=== PATIENT | female | born 1975 | race Caucasian/White ===

== ENCOUNTER 2016-11-24 11:15 | Emergency (ER) | payer OTHER ==
[~2016-11-24] VITALS: Ht 162.6 cm; Wt 63.5 kg
[~2016-11-24 11:15] MED LIST: CIPRO500 MG PO; FLAGYL500 MG PO; HYDROCODONE-AP1 EAC6 PO; PHENERGAN 25 MG25 M1 PO; TYLENOL325 MG PO; UNICOMPLEX M TA1 TA1 PO
[2016-11-24] MEDS ORDERED: DELTASONE20 MG PO (11:51)
[2016-11-24] MEDS ORDERED: MUPIROCIN1 GM TP (11:51)
[2016-11-24] MEDS ORDERED: PEPCID20 MG PO (12:00)
== END 2016-11-24 12:20 | disposition home or self-care (01) ==
LOC: ER 11:15
DX: L23.9 Allergic contact dermatitis, unspecified cause (principal); Z90.710 Acquired absence of both cervix and uterus

== ENCOUNTER 2017-05-31 08:19 | Emergency (ER) | payer OTHER ==
[~2017-05-31] VITALS: Ht 162.6 cm; Wt 72.6 kg
[~2017-05-31 08:19] MED LIST changes: +DELTASONE20 MG PO; +IBUPROFEN 600600 M1 PO; +MUPIROCIN1 GM TP; +PEPCID20 MG PO
[2017-05-31 09:03] LABS: ABSOLUTE NEUTROPHILS 4.7 thou/uL (1.4-8.2); BASOPHILS 0.7 % (0.0-2.0); EOSINOPHILS 4.7 % (0.0-3.0); HEMATOCRIT 46.6 % (37.0-47.0); HEMOGLOBIN 15.3 gm/dL (12.0-15.0); LYMPHOCYTES 33.2 % (24.0-44.0); MCH 32.4 pg (26.0-34.0); MCHC 32.9 g/dL (28.0-37.0); MCV 98.6 fL (80.0-100.0); MONOCYTES 6.9 % (1.0-8.0); PLATELET COUNT 214 thou/uL (150-400); POLYS 54.5 % (36.0-66.0); RBC 4.72 mil/uL (4.20-5.00); RDW 14.5 % (10.5-14.5); WBC 8.7 thou/uL (4.0-11.0)
[2017-05-31 09:04] LABS: MANUAL DIFF NO
[2017-05-31 09:10] LABS: CALCIUM 9.8 mg/dL (8.5-10.1); CREATININE 0.9 mg/dL (0.6-1.0); POTASSIUM 4.1 mmol/L (3.5-5.1)
[2017-05-31 09:15] LABS: APTT 24.7 Seconds (24.5-32.8)
[2017-05-31] MEDS ORDERED: NORCO 5-325 TA1 EACH PO (10:13)
== END 2017-05-31 11:01 | disposition home or self-care (01) ==
LOC: ER 08:19
PROVIDERS: Emergency Medicine
DX: M25.572 Pain in left ankle and joints of left foot (principal); F10.99 Alcohol use, unspecified with unspecified alcohol-induced disorder; F17.210 Nicotine dependence, cigarettes, uncomplicated; Z88.1 Allergy status to other antibiotic agents

== ENCOUNTER 2017-11-13 07:09 | Emergency (ER) | payer OTHER ==
[~2017-11-13] VITALS: Ht 162.6 cm; Wt 68.0 kg
[~2017-11-13 07:09] MED LIST changes: +NORCO 5-325 TA1 EACH PO
[2017-11-13] MEDS ORDERED: PROMETHAZINE/C118 ML PO (08:07)
[2017-11-13] MEDS ORDERED: MUCINEX DM ER1 EACH PO (08:07)
[2017-11-13] MEDS ORDERED: IBUPROFEN 600600 M1 PO (08:07)
== END 2017-11-13 08:40 | disposition home or self-care (01) ==
LOC: ER 07:09
DX: J06.9 Acute upper respiratory infection, unspecified (principal); F17.210 Nicotine dependence, cigarettes, uncomplicated; Z87.09 Personal history of other diseases of the respiratory system; Z90.89 Acquired absence of other organs; Z88.1 Allergy status to other antibiotic agents

== ENCOUNTER 2017-11-22 11:01 | Inpatient (IN) | payer OTHER ==
[~2017-11-22] VITALS: Ht 162.6 cm; Wt 65.8 kg
[~2017-11-22 11:01] MED LIST changes: +MUCINEX DM ER1 EACH PO; +PROMETHAZINE/C118 ML PO
[2017-11-22 11:15] VITALS: BP 145/100
[2017-11-22 11:46] LABS: ABSOLUTE NEUTROPHILS 16.4 thou/uL (1.4-8.2); BASOPHILS 0.8 % (0.0-2.0); EOSINOPHILS 2.7 % (0.0-3.0); LYMPHOCYTES 7.1 % (24.0-44.0); MCH 33.9 pg (26.0-34.0); MCHC 34.2 g/dL (28.0-37.0); MCV 99.2 fL (80.0-100.0); MONOCYTES 5.5 % (1.0-8.0); PLATELET COUNT 241 thou/uL (150-400); POLYS 83.9 % (36.0-66.0); RBC 3.83 mil/uL (4.20-5.00); RDW 13.6 % (10.5-14.5); WBC 19.5 thou/uL (4.0-11.0)
[2017-11-22 11:54] LABS: CALCIUM 9.6 mg/dL (8.5-10.1); CREATININE 0.8 mg/dL (0.6-1.0); POTASSIUM 3.3 mmol/L (3.5-5.1)
[2017-11-22 12:00] LABS: ALBUMIN 3.4 g/dL (3.4-5.0); DIRECT BILIRUBIN 0.1 mg/dL (<0.1-0.3); TOTAL BILIRUBIN 0.3 mg/dL (<0.1-1.0); TOTAL PROTEIN 7.8 g/dL (6.4-8.2)
[2017-11-22 14:17] VITALS: BP 128/59
[2017-11-22 15:20] VITALS: BP 134/89
[2017-11-23 04:30] VITALS: BP 117/58; BP 118/54
[2017-11-23 06:05] LABS: HEMATOCRIT 31.6 % (37.0-47.0); MCH 33.9 pg (26.0-34.0); MCV 99.6 fL (80.0-100.0); RBC 3.17 mil/uL (4.20-5.00); RDW 13.6 % (10.5-14.5); WBC 14.2 thou/uL (4.0-11.0)
[2017-11-23 06:26] LABS: HEMOGLOBIN 10.8 gm/dL (12.0-15.0)
[2017-11-23 15:37] VITALS: BP 127/67
[2017-11-23 19:40] VITALS: BP 114/58
[2017-11-24 04:13] VITALS: BP 111/65
[2017-11-24 05:42] LABS: HEMATOCRIT 29.9 % (37.0-47.0); HEMOGLOBIN 10.2 gm/dL (12.0-15.0); MCV 100.1 fL (80.0-100.0); RBC 2.99 mil/uL (4.20-5.00); WBC 9.7 thou/uL (4.0-11.0)
[2017-11-24 08:18] VITALS: BP 105/70
[2017-11-24 09:34] VITALS: BP 105/70
[2017-11-24] MEDS ORDERED: LEVAQUIN 500 M500 M2 PO (09:43)
[2017-11-24] MEDS ORDERED: PROMETHAZINE/C118 ML PO (09:44)
[2017-11-24 14:44] VITALS: BP 105/70
== END 2017-11-24 15:39 | disposition home or self-care (01) | DRG 871 ==
LOC: ER 11:01 → 4E 13:41 → EROBS 13:41 → 4E 15:21 → ENTRNSPT 11-24 15:08 → EDTRNSPTSTS 11-24 15:22 → 4E 11-24 15:39
PROVIDERS: Emergency Medicine; Hospitalist
DX: A41.9 Sepsis, unspecified organism (principal); J18.9 Pneumonia, unspecified organism; F17.210 Nicotine dependence, cigarettes, uncomplicated; Z90.710 Acquired absence of both cervix and uterus; Z88.8 Allergy status to other drugs, medicaments and biological substances
CPT/HCPCS: 10084

== ENCOUNTER 2018-02-13 11:39 | Emergency (ER) | payer OTHER ==
[~2018-02-13] VITALS: Ht 162.6 cm; Wt 72.6 kg
--- NOTE | ~2018-02-13 | EKG ---
[address] [address] [place] [address] ELECTROCARDIOGRAM REPORT Name: VAUGHN COOK Room #: DEP Itzel#: [id number] Admission: 02/13/18 Attend Phys: Discharge: 02/13/18 Date of : 73 Report #: [id number] THIS REPORT FOR: //name// [facility] ED Test Date: 2018-02-13 Test Time: 11:44:56 Pat Name: VAUGHN COOK Department: Room: Gender: F Electrical Systems Designer: Kasie HUNT : 1975 Requested By: Rosemary Almazan Order Number: [id number] MD: Kennedy Cazares Measurements Intervals Converse Rate: 93 P: 68 CT: 121 QRS: 67 QRSD: 89 T: 16 QT: 353 QTc: 440 Interpretive Statements Sinus rhythm RSR' in V1 or V2, right VCD No previous ECG available for comparison Electronically Signed On 02-15-2018 8:26:16 CDT by Kennedy Cazares [email or web address] <ELECTRONICALLY SIGNED> By: Kennedy Cazares MD, [facility] 02/15/18 0826 [id number] [id number] Kennedy Cazares MD, [facility] /EPI
--- NOTE | ~2018-02-13 | EKG ---
[address] [address] [facility] [place] [address] ELECTROCARDIOGRAM REPORT Name: VAGUHN COOK Room #: DEP Itzel#: [id number] Admission: 02/13/18 Attend Phys: Discharge: 02/13/18 Date of : 73 Report #: [id number] THIS REPORT FOR: //name// [facility] ED Test Date: 2018-02-13 Test Time: 14:56:32 Pat Name: VAUGHN COOK Department: Room: Gender: F Payroll Processor: Kasie HUNT : 1975 Requested By: Rosemary Almazan Order Number: [id number] MD: Kennedy Cazares Measurements Intervals [place] Rate: 62 P: -42 SD: 118 QRS: 66 QRSD: 106 T: 31 QT: 443 QTc: 450 Interpretive Statements Sinus rhythm Borderline short SD interval RSR' in V1 or V2, right VCD No previous ECG available for comparison Electronically Signed On 02-15-2018 8:28:08 CDT by Kennedy Cazares [email or web address] <ELECTRONICALLY SIGNED> By: Kennedy Cazares MD, [facility] 02/15/18 0828 1456 1456 Kennedy Cazares MD, [facility] /EPI
[~2018-02-13 11:39] MED LIST changes: +LEVAQUIN 500 M500 M2 PO
[2018-02-13 12:20] LABS: HEMATOCRIT 40.7 % (37.0-47.0); HEMOGLOBIN 14.1 gm/dL (12.0-15.0); MCH 34.3 pg (26.0-34.0); MCHC 34.7 g/dL (28.0-37.0); MCV 98.8 fL (80.0-100.0); RBC 4.11 mil/uL (4.20-5.00); WBC 5.9 thou/uL (4.0-11.0)
[2018-02-13 12:46] LABS: ALBUMIN 4.4 g/dL (3.4-5.0); ANION GAP 8 mmol/L (7-16); BUN 9 mg/dL (7-18); CALCIUM 9.1 mg/dL (8.5-10.1); CHLORIDE 106 mmol/L (98-107); CO2 25 mmol/L (21-32); CREATININE 0.8 mg/dL (0.6-1.0); GLUCOSE 90 mg/dL (74-106); POTASSIUM 3.9 mmol/L (3.5-5.1); SGOT 25 U/L (15-37); SGPT 32 U/L (30-65); SODIUM 139 mmol/L (136-145); TOTAL BILIRUBIN 0.2 mg/dL (<0.1-1.0); TOTAL PROTEIN 7.4 g/dL (6.4-8.2); TROPONIN-I <0.06 ng/mL (<0.06)
[2018-02-13] MEDS ORDERED: PEPCID20 MG PO (17:31)
== END 2018-02-13 17:40 | disposition home or self-care (01) ==
LOC: ER 11:39
PROVIDERS: Student in an Organized Health Care Education/Training Program
DX: R07.2 Precordial pain (principal); R42 Dizziness and giddiness; R00.0 Tachycardia, unspecified; F17.210 Nicotine dependence, cigarettes, uncomplicated; Z88.1 Allergy status to other antibiotic agents; Z90.710 Acquired absence of both cervix and uterus

== ENCOUNTER 2018-11-15 09:16 | Emergency (ER) | payer OTHER ==
[~2018-11-15] VITALS: Ht 162.6 cm; Wt 72.6 kg
[2018-11-15 09:29] VITALS: BP 149/105
[2018-11-15] MEDS ORDERED: NORCO 5-325 TA1 EACH PO (10:24)
== END 2018-11-15 10:16 | disposition home or self-care (01) ==
LOC: ER 09:16
DX: S90.31XA Contusion of right foot, initial encounter (principal); F17.210 Nicotine dependence, cigarettes, uncomplicated; Z90.710 Acquired absence of both cervix and uterus; Z88.1 Allergy status to other antibiotic agents; W22.8XXA Striking against or struck by other objects, initial encounter; Y93.89 Activity, other specified; Y92.59 Other trade areas as the place of occurrence of the external cause; Y99.8 Other external cause status

== ENCOUNTER 2019-03-31 14:52 | Emergency (ER) | payer OTHER ==
[~2019-03-31] VITALS: Ht 162.6 cm; Wt 62.6 kg
[2019-03-31 14:53] VITALS: BP 165/96
[2019-03-31] MEDS ORDERED: NORCO 10-325 T1 EACH PO (15:44)
[2019-03-31] MEDS ORDERED: AMOXICILLIN 50500 MG PO (15:44)
== END 2019-03-31 15:47 | disposition home or self-care (01) ==
LOC: ER 14:52
DX: K02.9 Dental caries, unspecified (principal); F17.210 Nicotine dependence, cigarettes, uncomplicated; Z90.710 Acquired absence of both cervix and uterus; Z88.1 Allergy status to other antibiotic agents

== ENCOUNTER 2020-02-11 11:00 | Emergency (ER) | payer OTHER ==
[~2020-02-11] VITALS: Ht 162.6 cm; Wt 59.0 kg
[~2020-02-11 11:00] MED LIST changes: +AMOXICILLIN 50500 MG PO; +NORCO 10-325 T1 EACH PO
[2020-02-11 11:01] VITALS: BP 149/89
[2020-02-11] MEDS ORDERED: NAPROSYN500 MG PO (12:21)
[2020-02-11] MEDS ORDERED: PENICILLIN V P500 MG PO (12:21)
[2020-02-11] MEDS ORDERED: NORCO 5-325 TA1 EAC2 PO (12:21)
== END 2020-02-11 12:27 | disposition home or self-care (01) ==
LOC: ER 11:00
DX: S09.93XA Unspecified injury of face, initial encounter (principal); K05.10 Chronic gingivitis, plaque induced; F17.210 Nicotine dependence, cigarettes, uncomplicated; Z90.710 Acquired absence of both cervix and uterus; Z88.1 Allergy status to other antibiotic agents; X58.XXXA Exposure to other specified factors, initial encounter; Y93.89 Activity, other specified; Y92.89 Other specified places as the place of occurrence of the external cause; Y99.8 Other external cause status

== ENCOUNTER 2021-05-20 14:04 | Emergency (ER) | payer OTHER ==
[~2021-05-20] VITALS: Ht 162.6 cm; Wt 61.7 kg
[~2021-05-20 14:04] MED LIST changes: +NAPROSYN500 MG PO; +NORCO 5-325 TA1 EAC2 PO; +PENICILLIN V P500 MG PO
[2021-05-20 14:21] VITALS: BP 151/96
[2021-05-20 17:39] LABS: ABSOLUTE NEUTROPHILS 6.1 thou/uL (1.4-8.2); BASOPHILS 1.1 % (0.0-2.0); EOSINOPHILS 1.7 % (0.0-3.0); HEMATOCRIT 44.7 % (37.0-47.0); LYMPHOCYTES 23.1 % (24.0-44.0); MCH 35.8 pg (26.0-34.0); MCHC 33.5 g/dL (28.0-37.0); MCV 106.7 fL (80.0-100.0); MONOCYTES 8.1 % (1.0-8.0); PLATELET COUNT 169 thou/uL (150-400); RBC 4.19 mil/uL (4.20-5.00); RDW 13.6 % (10.5-14.5); WBC 9.2 thou/uL (4.0-11.0)
[2021-05-20 17:51] LABS: CALCIUM 9.3 mg/dL (8.5-10.1); CREATININE 0.9 mg/dL (0.6-1.0); POTASSIUM 3.3 mmol/L (3.5-5.1)
[2021-05-20 17:57] LABS: ALBUMIN 4.1 g/dL (3.4-5.0); TOTAL BILIRUBIN 0.5 mg/dL (0.2-1.0); TOTAL PROTEIN 7.5 g/dL (6.4-8.2)
[2021-05-20] MEDS ORDERED: ULTRAM 50MG TAB50 MG PO (18:12)
[2021-05-20 18:14] LABS: MACROCYTES 1+
[2021-05-20] MEDS ORDERED: LEVOFLOXACIN750 MG PO (18:18)
== END 2021-05-20 18:30 | disposition home or self-care (01) ==
LOC: ER 14:04
PROVIDERS: Nurse Practitioner
DX: S91.102A Unspecified open wound of left great toe without damage to nail, initial encounter (principal); F17.210 Nicotine dependence, cigarettes, uncomplicated; Z90.710 Acquired absence of both cervix and uterus; Z79.891 Long term (current) use of opiate analgesic; Z79.899 Other long term (current) drug therapy; Z88.1 Allergy status to other antibiotic agents; X58.XXXA Exposure to other specified factors, initial encounter; Y93.89 Activity, other specified; Y92.89 Other specified places as the place of occurrence of the external cause; Y99.8 Other external cause status